=== PATIENT | female | born 1975 | race Two or more races ===

== ENCOUNTER 2016-12-11 01:50 | Emergency (ER) | payer SELFPAY ==
[~2016-12-11] VITALS: Ht 157.5 cm; Wt 54.4 kg
[2016-12-11] MEDS ORDERED: VICODIN 5-3001 EACH ORAL (01:56)
[2016-12-11] MEDS: Norco 5mg/325mg tab ORAL ONE ×2 (02:09→02:16)
[2016-12-11] MEDS ORDERED: Ampicillin/Sulbactam Sod 3 GM in NS 110 ML IV SCH ×4 (02:15)
[2016-12-11 02:17] VITALS: BP 0/0
--- NOTE | 2016-12-11 02:22 | Emergency Room Report ---
History of Present Illness General Chief Complaint: Pain Source: Patient Present Illness HPI [id number] [employer] patient with ?2-3 days right middle finger swelling All other fingers have recently done nails - the middle finger nail is picked back, not well manicured Denies fever/chills Ring is stuck on finger Denies trauma, bites, open wounds Allergies: Coded Allergies: No Known Allergies (Unverified , 12/11/16) Patient History Past Medical History: none Past Surgical History: none Pertinent Family History: none Social History: Denies: alcohol use, drug use, smoking Last Menstrual Period: 11/16 Now: No : 3 Para: 3 Immunizations: UTD Reviewed Nursing Documentation: PMH: Agreed, PSxH: Agreed Nursing Documentation-PMH Past Medical History: No Stated History Review of Systems All Other Systems: negative except mentioned in HPI Physical Exam Vital Signs Date Time Temp Pulse Resp B/P Pulse Ox O2 Delivery O2 Flow Rate FiO2 12/11/16 01:52 97.7 83 22 117/80 100 Room Air Sp02 EP Interpretation: reviewed, normal General Appearance: normal inspection, well appearing, no apparent distress, alert, GCS 15, non-toxic Head: normocephalic, atraumatic Eyes: bilateral eye EOMI, bilateral eye PERRL ENT: normal ENT inspection, hearing grossly normal, normal voice Neck: normal inspection, full range of motion, supple, no bony tend Respiratory: normal inspection, lungs clear, normal breath sounds, no respiratory distress, no retraction, no wheezing Cardiovascular #1: regular rate, rhythm, no edema Gastrointestinal: normal inspection, normal bowel sounds, non tender, soft, no guarding, no hernia Genitourinary: no CVA tenderness Musculoskeletal: other - Right hand: Diffusely swollen and erythematous right middle finger; ring is stuck at MCP joint. Distal nail is eroded. No distal pulp ttp. Neurologic: normal inspection, alert, oriented x3, responsive, bottle line worker III-XII nml as tested, motor strength/tone normal, speech normal Psychiatric: normal inspection, judgement/insight normal, mood/affect normal Skin: normal inspection, normal color, no rash Lymphatic: normal inspection Procedures Additional Procedure Procedure Narrative Right middle finger Ring stuck Was removed with ring cutter Medical Decision Making Diagnostic Impression: Primary Impression: Swelling of right middle finger ER Course Ring was removed by ring cutter after PO [place] given Ordered IV access, labs, Blood Cx and IV unasyn RN went to place IV, draw labs and patient states she is leaving because she wanted IV or IM pain meds We told patient we were placing IV to give Abx, additional meds as needed and expressed concern for significantly infected finger/cellulitis However despite repeated attempts patient refuses to stay She refused to wait for DC paperwork, sign AMA forms, or wait for Rx PO Abx Patient is clinically sober, is free from from distracting injury, and has intact judgement and capacity to decide to leave against medical advice. Patient came in with infected right middle finger, I'm concerned for possible cellulitis, flexor tensonovitis, sepsis. Patient verbalized understanding of my concern and my need to do IV acccess, Abx , labs, possibly imaging, admission, Hand Cx. Patient upset she didnt get IV/IM pain meds even though within 20 minutes of being in ED, she had her ring removed, was seen/examined by MD and received PO narcotics. I explained to patient the risks of leaving AMA and patient informed that if they he leaves, they could get worse,s he could become become critically ill, possibly become disabled or . Patient verbalized back to me understanding of these risks but still wants to leave. Last Vital Signs Date Time Temp Pulse Resp B/P Pulse Ox O2 Delivery O2 Flow Rate FiO2 12/11/16 01:52 97.7 83 22 117/80 100 Room Air Status: improved Disposition: AGAINST MEDICAL ADVICE DAVEY SIU M.D. Dec 11, 2016 02:22
== END 2016-12-11 02:17 | disposition left against medical advice (07) ==
LOC: EMR 02:07
DX: M79.89 Other specified soft tissue disorders (principal); W49.04XA Ring or other jewelry causing external constriction, initial encounter; Y92.89 Other specified places as the place of occurrence of the external cause